=== PATIENT | male | born 1990 | race Caucasian/White ===

== ENCOUNTER 2017-02-11 16:57 | Emergency (ER) | payer SELFPAY ==
[~2017-02-11] VITALS: Ht 177.8 cm; Wt 64.6 kg
[~2017-02-11 16:57] MED LIST: MTR800 PO; THYROID MED PO
[2017-02-11 17:02] VITALS: TEMP 36.9; Ht 177.8 cm; Wt 64.6 kg
[2017-02-11] MEDS ORDERED: LEVO50TA PO (17:18)
[2017-02-11] MEDS ORDERED: ONDANSETRON 8 MG/54 ML D5W IV STA (17:36)
[2017-02-11] MEDS ORDERED: SODIUM CHLORIDE 0.9% 1000ML 1,000 ML IV STA (17:36)
[2017-02-11] MEDS ORDERED: KETOROLAC TROMETHAMINE 30 MG/ML VIAL IV STA ×2 (17:36→19:59)
[2017-02-11 17:47] LABS: BASO % 0.1 %; BASO ABS # 0.01 K/uL (0-0.2); COMPLETE YES; EOS % 2.2 %; HEMATOCRIT 46.1 % (42-52); IG% 0.1 %; LYMPH % 29.6 %; LYMPH ABS # 2.32 K/uL (1.2-3.4); MEAN CELL VOLUME 89.2 fL (80-100); MEAN CORPUSCULAR HEMOGLOBIN 32.1 pg (25-34); MEAN PLATELET VOLUME 9.9 fL (7.4-10.4); MONO % 10.2 %; NEUT % 57.8 %; PLATELET COUNT 235 K/uL (130-400); RED BLOOD COUNT 5.17 M/uL (4.7-6.1); URINE APPEARANCE CLEAR (CLEAR); URINE BILIRUBIN NEG (NEG); URINE COLOR YELLOW; URINE NITRITE NEG (NEG); URINE PH 6.5 (4.5-7.5); URINE SPECIFIC GRAVITY 1.005 (1.000-1.030); UROBILINOGEN NEG (NEG); WHITE BLOOD COUNT 7.84 K/uL (4.8-10.8); ZZUR CULT IF INDIC CLEAN CATCH NO
[2017-02-11 18:15] LABS: MANUAL MICROSCOPIC REQUIRED? NO; REVIEW REQ? NO
[2017-02-11 18:19] LABS: ALT/SGPT 52 U/L (12-78); AST/SGOT 20 U/L (15-37); BLOOD UREA NITROGEN 13 mg/dl (7-18); BUN/CREATININE RATIO 8.9 (10-20); CALCIUM 8.9 mg/dl (8.5-10.1); CARBON DIOXIDE 27 mmol/L (21-32); CHLORIDE 106 mmol/L (98-107); GLUCOSE 86 mg/dl (70-99); POTASSIUM 3.4 mmol/L (3.5-5.1); SODIUM 139 mmol/L (136-145)
[2017-02-11 18:24] LABS: ALKALINE PHOSPHATASE 128 U/L (45-117)
[2017-02-11] MEDS ORDERED: MoRPHine SULFATE 4 MG/ML 1 ML CARP\\VIAL IV STA (18:56)
--- NOTE | 2017-02-11 20:30 | DIAGNOSTIC IMAGING REPORT ---
CT SCAN OF THE ABDOMEN AND PELVIS WITHOUT CONTRAST CLINICAL HISTORY: left flank pain, dark urine, vomiting.. COMPARISON STUDY: Biliary ultrasound dated 07/12/2015 TECHNIQUE: CT scan of the abdomen and pelvis was performed from the lung bases to the proximal femurs. Images are reviewed in the axial, sagittal, and coronal planes. IV contrast was not administered for this examination. A dose lowering technique was utilized adhering to the principles of ALARA. CT DOSE: 430.89 mGycm FINDINGS: Lower chest: The heart is normal in size and configuration, without pericardial effusion. The lung bases and pleural spaces are clear. Liver: The unenhanced liver is normal in size, contour, and attenuation. There is no intrahepatic biliary ductal dilatation. Gallbladder: Surgically absent Spleen: Normal in size and attenuation. Pancreas: Unremarkable. Adrenal glands: Unremarkable. Kidneys: No renal, ureteral, or bladder calculi are visualized. Bowel: There are no transition zones indicate bowel obstruction. There is no acute diverticulitis. There are no findings to indicate acute appendicitis. Peritoneum: There is no intraperitoneal free air or abdominal ascites. Vasculature: The abdominal aorta is normal in course and caliber. Adenopathy: None. Pelvic viscera: The bladder, and pelvic viscera are unremarkable. Skeletal structures: No destructive osseous lesions are seen. IMPRESSION: 1. No acute intra-abdominal or pelvic findings 2. No renal, ureteral, or bladder calculi identified 3. No evidence of bowel obstruction. No evidence of free air 4. No evidence of acute diverticulitis. No evidence of acute appendicitis. Electronically signed by: Chepe Jasso M.D. 02/11/2017 8:29 PM Dictated Date/Time: 02/11/2017 8:25 PM
[2017-02-11] MEDS ORDERED: FENTANYL CITRATE INJ 50 MCG/1 ML 2 ML VIAL IV STA (20:58)
[2017-02-11 22:00] VITALS: BP 110/66
[2017-02-11 22:11] VITALS: PULSE 55; O2SAT 97
[2017-02-11] MEDS ORDERED: TRAMADOL HCL 50 MG HOME PACK PO ONE (22:30)
[2017-02-11] MEDS ORDERED: PHENERGAN 25MG HOMEPACK PO ONE (22:30)
--- NOTE | 2017-02-12 00:25 | EMERGENCY ROOM VISIT NOTE ---
History Report prepared by Lucía: Tasha Souza Under the Supervision of: Dr. Marco Massey M.D. First contact with patient: 17:14 Chief Complaint: FLANK PAIN Stated Complaint: PAIN IN L SIDE & BACK, FEEL WEAK AND STOMACH PAIN History of Present Illness The patient is a 26 year old male who presents to the Emergency Room with complaints of left sided abdominal pain beginning a few days ago. The patient states that he has been having pain in his left flank that goes into is abdomen and left back. He complains of nausea, vomiting, diarrhea, diaphoresis at night , left chest pain, weakness, and tiredness. The patient notes that he has had dark urine and urinary urgency. He reports a history of thyroidectomy and cholecystectomy but is not sure why he had the cholecystectomy. The patient states that he has had 3 episodes of vomiting with 1 today. Pt denies trauma, injury, heavy lifting, LOC, headache, fevers, chills, diaphoresis, visual changes, neck pain, chest pain, breathing difficulties, melena, hematochezia, numbness, lymphadenopathy, rash, or other complaints. He notes that he has taken Advil and drank Gatorade without relief of his symptoms. He notes that eating worsens his symptoms. Source of History: patient Onset: a few days ago Position: abdomen Timing: constant Modifying Factors (Worsening): eating Associated Symptoms: + diaphoresis, + nausea, + vomiting, + abdominal pain, + back pain, + diarrhea, + urinary symptoms Review of Systems See HPI for pertinent positives and negatives. A total of ten systems were reviewed and were otherwise negative. Past Medical & Surgical Medical Problems: (1) Hyperthyroidism Surgical Problems: (1) History of cholecystectomy Family History No pertinent family history stated. Social History Smoking Status: Current Every Day Smoker Marital Status: in relationship Occupation Status: unemployed Current/Historical Medications Scheduled Levothyroxine Sodium (Synthroid), 50 MCG PO DAILY Allergies Coded Allergies: Amoxicillin (Unverified Allergy, Unknown, RASH, 07/12/15) Latex (Unverified Allergy, Unknown, RASH, 07/12/15) Acetaminophen (Unverified Adverse Reaction, Intermediate, VOMITTING, ) Physical Exam Vital Signs Date Time Temp Pulse Resp B/P (MAP) Pulse Ox O2 Delivery O2 Flow Rate FiO2 02/11/17 22:11 55 18 97 02/11/17 22:00 110/66 02/11/17 21:56 57 18 97 02/11/17 21:51 61 15 97 02/11/17 21:36 59 22 98 02/11/17 21:31 104/64 02/11/17 21:21 61 21 99 02/11/17 21:06 62 17 98 02/11/17 21:00 121/74 02/11/17 20:51 61 21 99 02/11/17 20:44 96/68 02/11/17 20:06 63 20 99 02/11/17 20:01 103/63 02/11/17 19:57 61 21 100 02/11/17 19:42 62 14 98 02/11/17 19:30 112/65 02/11/17 19:27 60 19 99 02/11/17 19:20 56 02/11/17 19:05 59 22 97/62 99 Room Air 02/11/17 19:03 97/62 02/11/17 17:02 36.9 78 16 122/81 99 Room Air Physical Exam GENERAL: Awake, alert, well-appearing, in no distress HENT: Normocephalic, atraumatic. Oropharynx unremarkable. EYES: Normal conjunctiva. Sclera non-icteric. NECK: Supple. No nuchal rigidity. FROM. No JVD. RESPIRATORY: Clear to auscultation. CARDIAC: Regular rate, normal rhythm. Extremities warm and well perfused. Pulses equal. ABDOMEN: Soft, non-distended. LUQ tenderness. No rebound or guarding. No masses. RECTAL: Deferred. MUSCULOSKELETAL: Chest examination reveals no tenderness. The back is symmetrical on inspection without obvious abnormality. Left CVA tenderness. Chest examination reveals left costal margin tenderness. No joint edema. LOWER EXTREMITIES: Calves are equal size bilaterally and non-tender. No edema. No discoloration. NEURO: Normal sensorium. No sensory or motor deficits noted. SKIN: No rash or jaundice noted. Medical Decision & Procedures ER Provider Diagnostic Interpretation: Radiology results as stated below per my review and radiologist interpretation: CT SCAN OF THE ABDOMEN AND PELVIS WITHOUT CONTRAST FINDINGS: Lower chest: The heart is normal in size and configuration, without pericardial effusion. The lung bases and pleural spaces are clear. Liver: The unenhanced liver is normal in size, contour, and attenuation. There is no intrahepatic biliary ductal dilatation. Gallbladder: Surgically absent Spleen: Normal in size and attenuation. Pancreas: Unremarkable. Adrenal glands: Unremarkable. Kidneys: No renal, ureteral, or bladder calculi are visualized. Bowel: There are no transition zones indicate bowel obstruction. There is no acute diverticulitis. There are no findings to indicate acute appendicitis. Peritoneum: There is no intraperitoneal free air or abdominal ascites. Vasculature: The abdominal aorta is normal in course and caliber. Adenopathy: None. Pelvic viscera: The bladder, and pelvic viscera are unremarkable. Skeletal structures: No destructive osseous lesions are seen. IMPRESSION: 1. No acute intra-abdominal or pelvic findings 2. No renal, ureteral, or bladder calculi identified 3. No evidence of bowel obstruction. No evidence of free air 4. No evidence of acute diverticulitis. No evidence of acute appendicitis. Electronically signed by: Chepe Jasso M.D. 02/11/2017 8:29 PM Dictated Date/Time: 02/11/2017 8:25 PM Laboratory Results 02/11/17 17:30 Red Blood Count 5.17, Mean Corpuscular Volume 89.2, Mean Corpuscular Hemoglobin 32.1, Mean Corpuscular Hemoglobin Concent 36.0, Mean Platelet Volume 9.9, Neutrophils (%) (Auto) 57.8, Lymphocytes (%) (Auto) 29.6, Monocytes (%) (Auto) 10.2, Eosinophils (%) (Auto) 2.2, Basophils (%) (Auto) 0.1, Neutrophils # (Auto ) 4.53, Lymphocytes # (Auto) 2.32, Monocytes # (Auto) 0.80, Eosinophils # (Auto ) 0.17, Basophils # (Auto) 0.01 02/11/17 17:30 Test 02/11/17 17:30 02/11/17 21:31 White Blood Count 7.84 K/uL (4.8-10.8) Red Blood Count 5.17 M/uL (4.7-6.1) Hemoglobin 16.6 g/dL (14.0-18.0) Hematocrit 46.1 % (42-52) Mean Corpuscular Volume 89.2 fL (80-100) Mean Corpuscular Hemoglobin 32.1 pg (25-34) Mean Corpuscular Hemoglobin Concent 36.0 g/dl (32-36) Platelet Count 235 K/uL (130-400) Mean Platelet Volume 9.9 fL (7.4-10.4) Neutrophils (%) (Auto) 57.8 % Lymphocytes (%) (Auto) 29.6 % Monocytes (%) (Auto) 10.2 % Eosinophils (%) (Auto) 2.2 % Basophils (%) (Auto) 0.1 % Neutrophils # (Auto) 4.53 K/uL (1.4-6.5) Lymphocytes # (Auto) 2.32 K/uL (1.2-3.4) Monocytes # (Auto) 0.80 K/uL (0.11-0.59) Eosinophils # (Auto) 0.17 K/uL (0-0.5) Basophils # (Auto) 0.01 K/uL (0-0.2) RDW Standard Deviation 42.6 fL (36.4-46.3) RDW Coefficient of Variation 13.0 % (11.5-14.5) Immature Granulocyte % (Auto) 0.1 % Immature Granulocyte # (Auto) 0.01 K/uL (0.00-0.02) Urine Color YELLOW Urine Appearance CLEAR (CLEAR) Urine pH 6.5 (4.5-7.5) Urine Specific [place] 1.005 (1.000-1.030) Urine Protein NEG (NEG) Urine Glucose (UA) NEG (NEG) Urine Ketones NEG (NEG) Urine Occult Blood NEG (NEG) Urine Nitrite NEG (NEG) Urine Bilirubin NEG (NEG) Urine Urobilinogen NEG (NEG) Urine Leukocyte Esterase NEG (NEG) Anion Gap 6.0 mmol/L (3-11) Est Creatinine Clear Calc Drug Dose 73.1 ml/min Estimated GFR () 79.8 Estimated GFR (Non- 68.9 BUN/Creatinine Ratio 8.9 (10-20) Calcium Level 8.9 mg/dl (8.5-10.1) Total Bilirubin 0.5 mg/dl (0.2-1) Direct Bilirubin 0.1 mg/dl (0-0.2) Aspartate Amino Transf (AST/SGOT) 20 U/L (15-37) Alanine Aminotransferase (ALT/SGPT) 52 U/L (12-78) Alkaline Phosphatase 128 U/L (45-117) Troponin I < 0.015 ng/ml (0-0.045) Total Protein 8.7 gm/dl (6.4-8.2) Albumin 4.6 gm/dl (3.4-5.0) Lipase 108 U/L (73-393) Bedside D-Dimer 118 ng/mlFEU (0-450) Laboratory results reviewed by me Medications Administered Medications (Trade) Dose Ordered Sig/Chente Route Start Time Stop Time Status Last Admin Dose Admin Ondansetron HCl (Zofran 8mg Iv) 8 mg NOW STAT IV 02/11/17 17:36 02/11/17 17:38 DC 02/11/17 17:36 8 MG Ketorolac Tromethamine (Toradol Inj) 15 mg NOW STAT IV 02/11/17 17:36 02/11/17 17:38 DC 02/11/17 17:36 15 MG Sodium Chloride 1,000 ml @ 999 mls/hr Q1H1M STAT IV 02/11/17 17:36 02/11/17 18:36 DC 02/11/17 17:36 999 MLS/HR Morphine Sulfate (MoRPHine SULFATE INJ) 4 mg NOW STAT IV 02/11/17 18:56 02/11/17 18:57 DC 02/11/17 19:06 4 MG Ketorolac Tromethamine (Toradol Inj) 15 mg NOW STAT IV 02/11/17 19:59 02/11/17 20:00 DC 02/11/17 20:09 15 MG Fentanyl Citrate (Fentanyl Inj) 50 mcg NOW STAT IV 02/11/17 20:58 02/11/17 21:00 DC 02/11/17 21:45 50 MCG Tramadol HCl (Ultram Home Pack) 1 homepack UD ONCE PO 02/11/17 22:30 02/11/17 22:31 DC 02/11/17 22:28 1 HOMEPACK Promethazine HCl (Phenergan 25MG Home Pack) 1 homepack UD ONCE PO 02/11/17 22:30 02/11/17 22:31 DC 02/11/17 22:28 1 HOMEPACK ECG Indication: back/shoulder pain Rate (beats per minute): 60 Rhythm: sinus rhythm Findings: no acute ischemic change, no ectopy, other (short VT) ED Course 1714: The patient was evaluated in room B5. A complete history and physical exam was performed. 1736: Sodium Chloride 1000 ml @ 999 mls/hr IV, Toradol Inj 15mg IV, Ondansetron HCl 8mg IV. 1855: Morphine Sulfate 4mg IV. 1941: I reevaluated the patient and updated him on his results. 1958: Toradol Inj 15mg IV. 2057: Fentanyl Inj 50mcg IV. 2203: I reevaluated and updated the patient. He is doing well. 2229: Tramadol HCl 1 homepack PO, Promethazine HCl 1homepack PO. 2231: I reevaluated the patient. Discussed results and discharge instructions: He verbalized understanding and agreement. The patient is ready for discharge. Medical Decision Triage Nursing notes reviewed. The patient's presentation and history were concerning for left flank pain, nausea, vomiting, diarrhea. Etiologies such as renal colic, appendicitis, diverticulitis, mesenteric ischemia, aortic pathology, infections, inflammatory bowel disease, PUD, biliary pathology, UTI, as well as others were entertained. The patient was evaluated. He had left flank tenderness. An IV was established. The patient received Zofran and Toradol. His blood work was unremarkable. The patient had continued pain while waiting for imaging. The patient was given 4 mg of morphine. He felt better with this but the pain returned. Patient was given an additional dose of Toradol. The patient underwent CT imaging. This was negative. He was noting somewhat of a pleuritic component and radiation up towards her chest. His EKG did not reveal any evidence of pericarditis or acute ischemia. He had nonspecific changes. I had no prior for comparison. His CT scan did not reveal any abnormality is in the lower lung miguel. The patient had a negative troponin and d-dimer. His pain was very much reproducible in the left upper quadrant and left costal margin. He had vomiting and GI symptoms. He may have a component of costochondritis or musculoskeletal pain. The patient had a dose of fentanyl while waiting for the final test results. On reassessment he was doing better. The patient was hydrated as well during this treatment. The patient was given a Phenergan and tramadol home pack. He will follow-up closely with his primary physician. If he worsens in any way he will be back. Medication Reconcilliation Current Medication List: was personally reviewed by me Blood Pressure Screening Patient's blood pressure: Normal blood pressure Blood pressure disposition: Did not require urgent referral Impression Primary Impression: Left flank pain Additional Impression: Left sided chest pain Scribe Attestation The scribe's documentation has been prepared under my direction and personally reviewed by me in its entirety. I confirm that the note above accurately reflects all work, treatment, procedures, and medical decision making performed by me. Departure Information Dispostion Home / Self-Care Referrals Anil Barlow PA-C (PCP) Forms HOME CARE DOCUMENTATION FORM, IMPORTANT VISIT INFORMATION Patient Instructions [facility] Additional Instructions DO NOT drive, drink alcohol, operate machinery, or perform dangerous activities today. You were given medications in the ER that can affect your ability to safely function or operate a vehicle. Tramadol mg: Take 1 pill every six hours for breakthrough pain. Avoid alcohol, operating machinery or dangerous equipment, working on ladders or roofs, DRIVING , or situations where being under the influence may be dangerous. Ibuprofen(Motrin, Advil) may be used for fever or pain. Use 600mg every six hours as needed. Take with food. Avoid using more than 2400mg in a 24 hour period. Do not use 2400mg per day for more than three consecutive days without physician direction. Prolonged inappropriate use can lead to stomach upset or ulcers. Phenergan 25mg tabs, one every six hours for nausea. Rest and drink plenty of fluids as tolerated. Continue current medications. Avoid strenuous activities and anything that worsens your pain. Resume normal activities once your symptoms resolve. Return to the ER immediately for worsening or persistent chest pain, abdominal pain, vomiting, fevers, chest pains, difficulty breathing, worsening of your condition, or as needed. Follow up with your primary physician in 2-3 days for a recheck of your current condition. Problem Qualifiers
== END 2017-02-11 22:29 | disposition home or self-care (01) ==
LOC: C.EDB 16:58
DX: R10.9 Unspecified abdominal pain (principal); R07.9 Chest pain, unspecified; E05.90 Thyrotoxicosis, unspecified without thyrotoxic crisis or storm; F17.210 Nicotine dependence, cigarettes, uncomplicated; Z79.899 Other long term (current) drug therapy